=== PATIENT | female | born 1940 ===

== ENCOUNTER 2017-08-23 12:43 | Inpatient (IN) | payer OTHER ==
[~2017-08-23] VITALS: Ht 157.5 cm; Wt 73.1 kg
[~2017-08-23 12:43] MED LIST: AMLODIPINE BESYL5 M1 PO; CLEOCIN HCL300 MG PO; FERROUS GLUCON324 MG PO; GUAIFENESIN AN118 ML PO; HYDROCHLOROTHIA25 MG PO; LAC PO; LEVOFLOXACIN750 M1 PO; LOP100 PO; LOPRESSOR100 MG PO; MEDDP PO; METOPROLOL TART25 M1 PO; PANTOPRAZOLE SO40 M1 PO; SIMVASTATIN40 M1 PO; TYLENOL EXTRA500 M2 PO; VITAMIN C500 M4 PO
[2017-08-23 13:29] LABS: PLATELET COUNT 383 x10^3mcL (130-400)
[2017-08-23 13:42] LABS: CALCIUM 9.8 mg/dL (8.5-10.1); CARBON DIOXIDE 29.8 mmol/L (21-32); CHLORIDE SERUM 92 mmol/L (98-107); GLUCOSE SERUM 151 mg/dL (74-106); POTASSIUM SERUM 3.2 mmol/L (3.5-5.1); SODIUM SERUM 131 mmol/L (136-145)
[2017-08-23 13:46] LABS: ALBUMIN 3.7 g/dL (3.4-5.0); ALKALINE PHOSPHATASE 66 U/L (46-116); ALT/SGPT 28 U/L (14-59); AMYLASE 254 U/L (25-115); AST/SGOT 27 U/L (15-37); BILIRUBIN TOTAL 0.41 mg/dL (0.20-1.00); LIPASE 206 IU/L (73-393); RED CELL DISTRIBUTION WIDTH 18.2 % (11.5-14.5); TOTAL PROTEIN, SERUM 9.1 g/dL (6.4-8.2)
[2017-08-23] MEDS ORDERED: ROBAXIN500 MG PO (15:01)
[2017-08-23 15:25] LABS: microscopic required? YES; urine erythrocyte NEGATIVE (NEGATIVE)
[2017-08-23 15:29] LABS: CHOLESTEROL/HDL RATIO 2.8; MAGNESIUM 1.5 mg/dL (1.8-2.4)
[2017-08-23 15:39] LABS: FREE T4 1.24 ng/dL (0.76-1.46)
[2017-08-23 15:41] VITALS: BP 151/68
[2017-08-23 15:43] LABS: T3 TOTAL 1.3 ng/mL
[2017-08-23 15:48] LABS: FREE THYROXINE INDEX 4.3 ug/dL (1.4-4.5); T4(THYROXINE) 13.4 ug/dL (4.7-13.3)
[2017-08-23 15:55] VITALS: BP 151/68
[2017-08-23 20:49] VITALS: BP 146/62
[2017-08-24 04:45] VITALS: BP 136/60
[2017-08-24 06:54] LABS: BASOPHIL % 0.9 % (0-2); PLATELET COUNT 348 x10^3mcL (130-400)
[2017-08-24 07:07] LABS: RED CELL DISTRIBUTION WIDTH 18.8 % (11.5-14.5)
[2017-08-24 07:08] LABS: rbc morphology (normal/abnorm) ABNORMAL (NORMAL)
[2017-08-24 07:35] LABS: CALCIUM 9.2 mg/dL (8.5-10.1); CARBON DIOXIDE 28.5 mmol/L (21-32); CHLORIDE SERUM 101 mmol/L (98-107); CREATININE SERUM 0.8 mg/dL (0.6-1.0); GLUCOSE SERUM 88 mg/dL (74-106); MAGNESIUM 1.6 mg/dL (1.8-2.4); PHOSPHOROUS 2.3 mg/dL (2.5-4.9); POTASSIUM SERUM 3.9 mmol/L (3.5-5.1); SODIUM SERUM 136 mmol/L (136-145)
[2017-08-24 09:30] VITALS: BP 163/75
[2017-08-24 09:48] VITALS: BP 141/68
[2017-08-24 13:51] VITALS: BP 149/64
[2017-08-24 16:09] VITALS: BP 140/63
[2017-08-24 18:21] LABS: AMPHETAMINE QUAL UR NONE DETECTED (NEG <=1000)
[2017-08-24 21:01] VITALS: BP 133/56
[2017-08-25 05:34] VITALS: BP 151/64
[2017-08-25 06:37] LABS: BASOPHIL % 0.5 % (0-2); PLATELET COUNT 332 x10^3mcL (130-400)
[2017-08-25 06:41] LABS: CALCIUM 9.4 mg/dL (8.5-10.1); CHLORIDE SERUM 99 mmol/L (98-107); CREATININE SERUM 0.8 mg/dL (0.6-1.0); GLUCOSE SERUM 97 mg/dL (74-106); MAGNESIUM 1.9 mg/dL (1.8-2.4); PHOSPHOROUS 3.1 mg/dL (2.5-4.9); POTASSIUM SERUM 3.8 mmol/L (3.5-5.1); SODIUM SERUM 134 mmol/L (136-145)
[2017-08-25 06:58] LABS: rbc morphology (normal/abnorm) ABNORMAL (NORMAL)
[2017-08-25 08:54] VITALS: BP 151/64
[2017-08-25] MEDS ORDERED: COLACE100 MG PO (09:27)
[2017-08-25] MEDS ORDERED: VITAMIN C100 M2 PO (09:27)
[2017-08-25] MEDS ORDERED: FERG PO (09:29)
[2017-08-25 09:55] VITALS: BP 146/67
== END 2017-08-25 13:30 | disposition home or self-care (01) | DRG 391 ==
LOC: ED 12:43 → DU 14:37 → MU 08-24 18:07
PROVIDERS: Emergency Medicine; ADMIT Family Medicine
DX: K52.9 Noninfective gastroenteritis and colitis, unspecified (principal); N17.0 Acute kidney failure with tubular necrosis; K57.32 Diverticulitis of large intestine without perforation or abscess without bleeding; E87.1 Hypo-osmolality and hyponatremia; E87.6 Hypokalemia; E83.42 Hypomagnesemia; R80.9 Proteinuria, unspecified; E78.5 Hyperlipidemia, unspecified; R91.1 Solitary pulmonary nodule; Z68.29 Body mass index [BMI] 29.0-29.9, adult; Z85.43 Personal history of malignant neoplasm of ovary; Z88.8 Allergy status to other drugs, medicaments and biological substances; I10 Essential (primary) hypertension; K21.9 Gastro-esophageal reflux disease without esophagitis; Z96.651 Presence of right artificial knee joint; Z80.0 Family history of malignant neoplasm of digestive organs; Z80.59 Family history of malignant neoplasm of other urinary tract organ; Z82.49 Family history of ischemic heart disease and other diseases of the circulatory system; E87.8 Other disorders of electrolyte and fluid balance, not elsewhere classified
CPT/HCPCS: 83880; 84439; J1956; J2405; J3010; J3475; J3490; J7030; Q0092